=== PATIENT | male | born 1965 | race African-American/Black ===

== ENCOUNTER 2019-04-25 12:02 | Inpatient (IN) | payer BC ==
[2019-04-25 13:05] VITALS: BMI 26.6
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
[2019-04-25] MEDS ORDERED: METHOCARBAMOL 500 MG TABLET PO PRN (15:45)
[2019-04-25] MEDS ORDERED: ACETAMINOPHEN 325 MG TABLET (FP) PO PRN ×2 (15:45)
[2019-04-25] MEDS ORDERED: MAGNESIUM CITRATE 300 ML BOTTLE PO PRN (15:45)
[2019-04-25] MEDS ORDERED: hydrOXYzine PAMOATE 25 MG CAPSULE (FP) PO PRN (15:45)
[2019-04-25] MEDS ORDERED: MENTHOL/PHENOL 1 EACH UD MM PRN (15:45)
[2019-04-25] MEDS ORDERED: BISMUTH SUBSALICYLATE 524 MG/30 ML UD PO PRN (15:45)
[2019-04-25] MEDS ORDERED: MAGNESIUM HYDROX 2400MG/30ML ORAL SUSPENSION 30 ML CUP PO PRN (15:45)
[2019-04-25] MEDS ORDERED: MAG HYDROX/AL HYDROX/SIMETH 30 ML UNIT-DOSE CUP PO PRN (15:45)
[2019-04-25] MEDS ORDERED: chlordiazePOXIDE HCL 25 MG CAPSULE PO PRN (15:45)
[2019-04-25] MEDS ORDERED: IBUPROFEN 400 MG TABLET (FP) PO PRN (15:45)
[2019-04-25] MEDS ORDERED: ALBUTEROL SO4 HFA INHALER IH PRN (15:49)
[2019-04-25] MEDS: chlordiazePOXIDE HCL 25 MG CAPSULE PO SCH ×2 (16:46→22:08)
[2019-04-25] MEDS ORDERED: QUEtiapine FUMARATE 50 MG TABLET PO SCH (22:00)
[2019-04-25] MEDS ORDERED: MIRTAZAPINE 15 MG TABLET (FP) PO SCH (22:00)
[2019-04-25] MEDS: THIAMINE HCL 100 MG TABLET (FP) PO SCH (22:08)
[2019-04-25] MEDS: MELATONIN 5 MG TABLETS PO PRN (22:09)
[2019-04-26] MEDS: chlordiazePOXIDE HCL 25 MG CAPSULE PO SCH ×4 (06:08→22:10)
[2019-04-26] MEDS: PRENATAL VITAMINS W/ FOLIC ACID TABLET (FP) PO SCH (10:21)
[2019-04-26] MEDS: NICOTINE 21 MG/24 HOURS TOPICAL PATCH TD SCH (10:22)
[2019-04-26 10:31] LABS: HEMATOCRIT 39.5 % (35.4-49); HEMOGLOBIN 13.2 GM/dL (11.7-16.9); MCH 29.6 pg (25.7-33.7); MCHC 33.4 g/dl (32.0-35.9); MEAN CELL VOLUME 88.6 fl (80-96); MEAN PLT VOLUME 9.6 fl (7.5-11.1); PLATELET COUNT 204 K/MM3 (134-434); RBC 4.45 M/mm3 (4.00-5.60); RDW 13.9 % (11.9-15.9); WHITE BLOOD COUNT 4.1 K/mm3 (4.0-10.0)
[2019-04-26 10:32] LABS: ALBUMIN 3.3 g/dl (3.4-5.0); BILIRUBIN,TOTAL 0.1 mg/dL (0.2-1); BLOOD UREA NITROGEN 17.1 mg/dL (7-18); CALCIUM 8.4 mg/dL (8.5-10.1); CREATININE 1.1 mg/dL (0.55-1.3); TOT PROT 6.5 g/dl (6.4-8.2)
--- NOTE | 2019-04-26 11:06 | PN ---
S CIWA - CIWA Score Nausea/Vomitin-Mild Nausea/No Vomiting Muscle Tremors: 4-Moderate,w/Arms Extend Anxiety: 3 Agitation: 0-Normal Activity Paroxysmal Sweats: 2 Orientation: 0-Oriented Tacttile Disturbances: 0-None Auditory Disturbances: 0-None Visual Disturbances: 2-Mild Sensitivity Headache: 0-None Present CIWA-Ar Total Score: 12 BHS Progress Note (SOAP) Subjective: 53 years old male admitted on 04/25/19 for alcohol withdrawal sx management treating with librum detox regiment feeling ok today ate breakfast in room feeling tired prefers to stay in bed today Objective: 04/26/19 11:05 Vital Signs Temperature 97.4 F L 04/26/19 08:32 Pulse Rate 65 04/26/19 08:32 Respiratory Rate 18 04/26/19 08:32 Blood Pressure 102/68 04/26/19 08:32 O2 Sat by Pulse Oximetry (%) Laboratory Last Values WBC 4.1 K/mm3 (4.0-10.0) 04/26/19 07:45 RBC 4.45 M/mm3 (4.00-5.60) 04/26/19 07:45 Hgb 13.2 GM/dL (11.7-16.9) 04/26/19 07:45 Hct 39.5 % (35.4-49) 04/26/19 07:45 MCV 88.6 fl (80-96) 04/26/19 07:45 MCH 29.6 pg (25.7-33.7) 04/26/19 07:45 MCHC 33.4 g/dl (32.0-35.9) 04/26/19 07:45 RDW 13.9 % (11.9-15.9) 04/26/19 07:45 Plt Count 204 K/MM3 (134-434) 04/26/19 07:45 MPV 9.6 fl (7.5-11.1) 04/26/19 07:45 Sodium 142 mmol/L (136-145) 04/26/19 07:45 Potassium 4.0 mmol/L (3.5-5.1) 04/26/19 07:45 Chloride 110 mmol/L (98-107) H 04/26/19 07:45 Carbon Dioxide 26 mmol/L (21-32) 04/26/19 07:45 Anion Gap 6 MMOL/L (8-16) L 04/26/19 07:45 BUN 17.1 mg/dL (7-18) 04/26/19 07:45 Creatinine 1.1 mg/dL (0.55-1.3) 04/26/19 07:45 Est GFR (CKD-EPI)AfAm 87.13 04/26/19 07:45 Est GFR (CKD-EPI)NonAf 75.17 04/26/19 07:45 Random Glucose 106 mg/dL (74-106) 04/26/19 07:45 Calcium 8.4 mg/dL (8.5-10.1) L 04/26/19 07:45 Total Bilirubin 0.1 mg/dL (0.2-1) L 04/26/19 07:45 AST 12 U/L (15-37) L 04/26/19 07:45 ALT 16 U/L (13-61) 04/26/19 07:45 Alkaline Phosphatase 97 U/L (45-117) 04/26/19 07:45 Total Protein 6.5 g/dl (6.4-8.2) 04/26/19 07:45 Albumin 3.3 g/dl (3.4-5.0) L 04/26/19 07:45 lab noted Assessment: 04/26/19 11:05 alcohol withdrawal Plan: librium regiment
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
[2019-04-26] MEDS: THIAMINE HCL 100 MG TABLET (FP) PO SCH (22:10)
[2019-04-26] MEDS: MIRTAZAPINE 15 MG TABLET (FP) PO SCH (22:10)
[2019-04-26] MEDS: QUEtiapine FUMARATE 50 MG TABLET PO SCH (22:10)
[2019-04-26] MEDS: MELATONIN 5 MG TABLETS PO PRN (22:11)
[2019-04-27] MEDS: chlordiazePOXIDE HCL 25 MG CAPSULE PO SCH ×4 (05:19→22:16)
[2019-04-27] MEDS: PRENATAL VITAMINS W/ FOLIC ACID TABLET (FP) PO SCH (10:28)
[2019-04-27] MEDS: NICOTINE 21 MG/24 HOURS TOPICAL PATCH TD SCH (10:29)
--- NOTE | 2019-04-27 10:36 | PN ---
[facility] CIWA - CIWA Score Nausea/Vomitin-No Nausea/No Vomiting Muscle Tremors: 3 Anxiety: 2 Agitation: 1-Slight > Activity Paroxysmal Sweats: 2 Orientation: 0-Oriented Tacttile Disturbances: 0-None Auditory Disturbances: 0-None Visual Disturbances: 1-Very Mild Sensitivity Headache: 0-None Present CIWA-Ar Total Score: 9 S Progress Note (SOAP) Subjective: 53 years old male admitted on 04/25/19 for alcohol withdrawal sx management treating with librium detox regiment patient received melatonin remeron seroquel on HS yesterday appears tired and sleepy but ate breakfast and returned to bed Objective: 04/27/19 10:37 Vital Signs Temperature 96.7 F L 04/27/19 08:46 Pulse Rate 72 04/27/19 08:46 Respiratory Rate 18 04/27/19 08:46 Blood Pressure 126/69 04/27/19 08:46 O2 Sat by Pulse Oximetry (%) Laboratory Last Values WBC 4.1 K/mm3 (4.0-10.0) 04/26/19 07:45 RBC 4.45 M/mm3 (4.00-5.60) 04/26/19 07:45 Hgb 13.2 GM/dL (11.7-16.9) 04/26/19 07:45 Hct 39.5 % (35.4-49) 04/26/19 07:45 MCV 88.6 fl (80-96) 04/26/19 07:45 MCH 29.6 pg (25.7-33.7) 04/26/19 07:45 MCHC 33.4 g/dl (32.0-35.9) 04/26/19 07:45 RDW 13.9 % (11.9-15.9) 04/26/19 07:45 Plt Count 204 K/MM3 (134-434) 04/26/19 07:45 MPV 9.6 fl (7.5-11.1) 04/26/19 07:45 Sodium 142 mmol/L (136-145) 04/26/19 07:45 Potassium 4.0 mmol/L (3.5-5.1) 04/26/19 07:45 Chloride 110 mmol/L (98-107) H 04/26/19 07:45 Carbon Dioxide 26 mmol/L (21-32) 04/26/19 07:45 Anion Gap 6 MMOL/L (8-16) L 04/26/19 07:45 BUN 17.1 mg/dL (7-18) 04/26/19 07:45 Creatinine 1.1 mg/dL (0.55-1.3) 04/26/19 07:45 Est GFR (CKD-EPI)AfAm 87.13 04/26/19 07:45 Est GFR (CKD-EPI)NonAf 75.17 04/26/19 07:45 Random Glucose 106 mg/dL (74-106) 04/26/19 07:45 Calcium 8.4 mg/dL (8.5-10.1) L 04/26/19 07:45 Total Bilirubin 0.1 mg/dL (0.2-1) L 04/26/19 07:45 AST 12 U/L (15-37) L 04/26/19 07:45 ALT 16 U/L (13-61) 04/26/19 07:45 Alkaline Phosphatase 97 U/L (45-117) 04/26/19 07:45 Total Protein 6.5 g/dl (6.4-8.2) 04/26/19 07:45 Albumin 3.3 g/dl (3.4-5.0) L 04/26/19 07:45 RPR Titer Nonreactive (NONREACTIVE) 04/26/19 07:45 lab noted Assessment: 04/27/19 10:38 alcohol withdrawal Plan: librium regiment
[2019-04-27] MEDS: MIRTAZAPINE 15 MG TABLET (FP) PO SCH (22:15)
[2019-04-27] MEDS: THIAMINE HCL 100 MG TABLET (FP) PO SCH (22:16)
[2019-04-27] MEDS: QUEtiapine FUMARATE 50 MG TABLET PO SCH (22:16)
[2019-04-28] MEDS ORDERED: chlordiazePOXIDE HCL 10 MG CAPSULE PO PRN
[2019-04-28] MEDS: chlordiazePOXIDE HCL 10 MG CAPSULE PO SCH ×4 (05:54→22:05)
[2019-04-28] MEDS: NICOTINE 21 MG/24 HOURS TOPICAL PATCH TD SCH (10:27)
[2019-04-28] MEDS: PRENATAL VITAMINS W/ FOLIC ACID TABLET (FP) PO SCH (10:29)
--- NOTE | 2019-04-28 10:52 | PN ---
[facility] CIWA - CIWA Score Nausea/Vomitin-Mild Nausea/No Vomiting Muscle Tremors: None Anxiety: 2 Agitation: 0-Normal Activity Paroxysmal Sweats: 4-Forehead w/Sweat Beads Orientation: 2-Disoriented Date<2 days Tacttile Disturbances: 0-None Auditory Disturbances: 0-None Visual Disturbances: 2-Mild Sensitivity Headache: 0-None Present CIWA-Ar Total Score: 11 BHS Progress Note (SOAP) Subjective: Complains of mild nausea, anxiety and light sensitivity Objective: 04/28/19 10:51 Laboratory Last Values WBC 4.1 K/mm3 (4.0-10.0) 04/26/19 07:45 RBC 4.45 M/mm3 (4.00-5.60) 04/26/19 07:45 Hgb 13.2 GM/dL (11.7-16.9) 04/26/19 07:45 Hct 39.5 % (35.4-49) 04/26/19 07:45 MCV 88.6 fl (80-96) 04/26/19 07:45 MCH 29.6 pg (25.7-33.7) 04/26/19 07:45 MCHC 33.4 g/dl (32.0-35.9) 04/26/19 07:45 RDW 13.9 % (11.9-15.9) 04/26/19 07:45 Plt Count 204 K/MM3 (134-434) 04/26/19 07:45 MPV 9.6 fl (7.5-11.1) 04/26/19 07:45 Sodium 142 mmol/L (136-145) 04/26/19 07:45 Potassium 4.0 mmol/L (3.5-5.1) 04/26/19 07:45 Chloride 110 mmol/L (98-107) H 04/26/19 07:45 Carbon Dioxide 26 mmol/L (21-32) 04/26/19 07:45 Anion Gap 6 MMOL/L (8-16) L 04/26/19 07:45 BUN 17.1 mg/dL (7-18) 04/26/19 07:45 Creatinine 1.1 mg/dL (0.55-1.3) 04/26/19 07:45 Est GFR (CKD-EPI)AfAm 87.13 04/26/19 07:45 Est GFR (CKD-EPI)NonAf 75.17 04/26/19 07:45 Random Glucose 106 mg/dL (74-106) 04/26/19 07:45 Calcium 8.4 mg/dL (8.5-10.1) L 04/26/19 07:45 Total Bilirubin 0.1 mg/dL (0.2-1) L 04/26/19 07:45 AST 12 U/L (15-37) L 04/26/19 07:45 ALT 16 U/L (13-61) 04/26/19 07:45 Alkaline Phosphatase 97 U/L (45-117) 04/26/19 07:45 Total Protein 6.5 g/dl (6.4-8.2) 04/26/19 07:45 Albumin 3.3 g/dl (3.4-5.0) L 04/26/19 07:45 RPR Titer Nonreactive (NONREACTIVE) 04/26/19 07:45 Vital Signs Temperature 97.0 F L 04/28/19 08:32 Pulse Rate 104 H 04/28/19 08:32 Respiratory Rate 20 04/28/19 08:32 Blood Pressure 141/97 04/28/19 08:32 O2 Sat by Pulse Oximetry (%) PE Gnl: WDWN, in no distress, in bed Mental status: easily aroused, nl mentation Motor: grossly symmetric limb movement Assessment: 04/28/19 10:52 1. Alcohol use disorder Plan: 1. Librium withdrawal protocol
[2019-04-28] MEDS: QUEtiapine FUMARATE 50 MG TABLET PO SCH (22:05)
[2019-04-28] MEDS: MIRTAZAPINE 15 MG TABLET (FP) PO SCH (22:05)
[2019-04-28] MEDS: THIAMINE HCL 100 MG TABLET (FP) PO SCH (22:05)
[2019-04-29] MEDS ORDERED: chlordiazePOXIDE HCL 10 MG CAPSULE PO SCH (05:00)
--- NOTE | 2019-04-29 10:51 | PN ---
S CIWA - CIWA Score Nausea/Vomitin-No Nausea/No Vomiting Muscle Tremors: None Anxiety: 2 Agitation: 0-Normal Activity Paroxysmal Sweats: 2 Orientation: 0-Oriented Tacttile Disturbances: 0-None Auditory Disturbances: 0-None Visual Disturbances: 0-None Headache: 1-Very Mild CIWA-Ar Total Score: 5 BHS Progress Note (SOAP) Subjective: c/o mild withdrawal symptoms. Objective: 04/29/19 10:50 Vital Signs 04/29/19 04/29/19 04/29/19 03:30 05:47 08:50 Temperature 97.0 F L 97.0 F L Pulse Rate 108 H 99 H Respiratory 18 18 20 Rate Blood Pressure 137/90 133/98 Laboratory Last Values WBC 4.1 K/mm3 (4.0-10.0) 04/26/19 07:45 RBC 4.45 M/mm3 (4.00-5.60) 04/26/19 07:45 Hgb 13.2 GM/dL (11.7-16.9) 04/26/19 07:45 Hct 39.5 % (35.4-49) 04/26/19 07:45 MCV 88.6 fl (80-96) 04/26/19 07:45 MCH 29.6 pg (25.7-33.7) 04/26/19 07:45 MCHC 33.4 g/dl (32.0-35.9) 04/26/19 07:45 RDW 13.9 % (11.9-15.9) 04/26/19 07:45 Plt Count 204 K/MM3 (134-434) 04/26/19 07:45 MPV 9.6 fl (7.5-11.1) 04/26/19 07:45 Sodium 142 mmol/L (136-145) 04/26/19 07:45 Potassium 4.0 mmol/L (3.5-5.1) 04/26/19 07:45 Chloride 110 mmol/L (98-107) H 04/26/19 07:45 Carbon Dioxide 26 mmol/L (21-32) 04/26/19 07:45 Anion Gap 6 MMOL/L (8-16) L 04/26/19 07:45 BUN 17.1 mg/dL (7-18) 04/26/19 07:45 Creatinine 1.1 mg/dL (0.55-1.3) 04/26/19 07:45 Est GFR (CKD-EPI)AfAm 87.13 04/26/19 07:45 Est GFR (CKD-EPI)NonAf 75.17 04/26/19 07:45 Random Glucose 106 mg/dL (74-106) 04/26/19 07:45 Calcium 8.4 mg/dL (8.5-10.1) L 04/26/19 07:45 Total Bilirubin 0.1 mg/dL (0.2-1) L 04/26/19 07:45 AST 12 U/L (15-37) L 04/26/19 07:45 ALT 16 U/L (13-61) 04/26/19 07:45 Alkaline Phosphatase 97 U/L (45-117) 04/26/19 07:45 Total Protein 6.5 g/dl (6.4-8.2) 04/26/19 07:45 Albumin 3.3 g/dl (3.4-5.0) L 04/26/19 07:45 RPR Titer Nonreactive (NONREACTIVE) 04/26/19 07:45 Labs noted. Assessment: 04/29/19 10:50 AOX3, in no acute respiratory distress. Full ROM, ambulating in the unit. Mild Withdrawal symptoms. For d/c tomorrow. Plan: continue detox. D/c in AM.
[2019-04-29] MEDS: NICOTINE 21 MG/24 HOURS TOPICAL PATCH TD SCH (11:00)
[2019-04-29] MEDS: PRENATAL VITAMINS W/ FOLIC ACID TABLET (FP) PO SCH (11:00)
[2019-04-29 15:12] VITALS: BP 144/94; PULSE 90; TEMP 97
--- NOTE | 2019-04-29 15:50 | DS ---
[facility] Detox Discharge Summary Admission Date: 04/25/19 Discharge Date: 04/29/19 (Left AMA) - History Present History: Alcohol Dependence Additional Comments: I was informed by the field staff that pt was verbally abusive to the staff and patients on the unit, using abusive/threatening words to staff which condition 10 was called. Pt was seen on the unit agitated and aggressive asking to leave. Pt states, "I want to leave now". Pt refused to talk to the provider at this time. Pt left AMA. Pt did not complete the detox protocol. Unable to give any discharge instructions due to pt's uncooperativeness. Pt is alert and oriented x3 and in no acute respiratory distress. Pertinent Past History: h/o asthma and alcohol use disorder. - Physical Exam Results Vital Signs: Vital Signs Temperature 97 F L 04/29/19 15:11 Pulse Rate 90 04/29/19 15:11 Respiratory Rate 18 04/29/19 15:11 Blood Pressure 144/94 04/29/19 15:11 O2 Sat by Pulse Oximetry (%) Vital Signs 04/29/19 04/29/19 08:50 15:11 Temperature 97.0 F L 97 F L Pulse Rate 99 H 90 Respiratory 20 18 Rate Blood Pressure 133/98 144/94 Laboratory Last Values WBC 4.1 K/mm3 (4.0-10.0) 04/26/19 07:45 RBC 4.45 M/mm3 (4.00-5.60) 04/26/19 07:45 Hgb 13.2 GM/dL (11.7-16.9) 04/26/19 07:45 Hct 39.5 % (35.4-49) 04/26/19 07:45 MCV 88.6 fl (80-96) 04/26/19 07:45 MCH 29.6 pg (25.7-33.7) 04/26/19 07:45 MCHC 33.4 g/dl (32.0-35.9) 04/26/19 07:45 RDW 13.9 % (11.9-15.9) 04/26/19 07:45 Plt Count 204 K/MM3 (134-434) 04/26/19 07:45 MPV 9.6 fl (7.5-11.1) 04/26/19 07:45 Sodium 142 mmol/L (136-145) 04/26/19 07:45 Potassium 4.0 mmol/L (3.5-5.1) 04/26/19 07:45 Chloride 110 mmol/L (98-107) H 04/26/19 07:45 Carbon Dioxide 26 mmol/L (21-32) 04/26/19 07:45 Anion Gap 6 MMOL/L (8-16) L 04/26/19 07:45 BUN 17.1 mg/dL (7-18) 04/26/19 07:45 Creatinine 1.1 mg/dL (0.55-1.3) 04/26/19 07:45 Est GFR (CKD-EPI)AfAm 87.13 04/26/19 07:45 Est GFR (CKD-EPI)NonAf 75.17 04/26/19 07:45 Random Glucose 106 mg/dL (74-106) 04/26/19 07:45 Calcium 8.4 mg/dL (8.5-10.1) L 04/26/19 07:45 Total Bilirubin 0.1 mg/dL (0.2-1) L 04/26/19 07:45 AST 12 U/L (15-37) L 04/26/19 07:45 ALT 16 U/L (13-61) 04/26/19 07:45 Alkaline Phosphatase 97 U/L (45-117) 04/26/19 07:45 Total Protein 6.5 g/dl (6.4-8.2) 04/26/19 07:45 Albumin 3.3 g/dl (3.4-5.0) L 04/26/19 07:45 RPR Titer Nonreactive (NONREACTIVE) 04/26/19 07:45 Labs noted. Pertinent Admission Physical Exam Findings: withdrawal symptoms. - Treatment Hospital Course: Detox Protocol Followed - Medication Discharge Medications: Ambulatory Orders Mirtazapine [Remeron] 30 mg PO HS 03/23/11 Albuterol Sulfate Inhaler - [Ventolin Hfa Inhaler -] 2 inh PO Q4H 12/12/18 Quetiapine Fumarate [Seroquel -] 50 mg PO HS 04/25/19 - Diagnosis (1) Alcohol use disorder Current Visit: Yes Status: Acute (2) Cocaine use disorder Current Visit: Yes Status: Chronic (3) Nicotine dependence Current Visit: Yes Status: Chronic - AMA Did Patient Leave Against Medical Advice: Yes
[2019-04-30] MEDS ORDERED: chlordiazePOXIDE HCL 10 MG CAPSULE PO ONE (05:00)
== END 2019-04-29 15:40 | disposition left against medical advice (07) | DRG 770 ==
LOC: YASAS 12:02 → UNDOADMIN 13:56 → Y3N 13:56
PROVIDERS: ADMIT Allergy & Immunology; ATTEND Allergy & Immunology
PROC: HZ2ZZZZ Detoxification Services for Substance Abuse Treatment (ICD-10-PCS; principal; 2019-04-25)
DX: F10.230 Alcohol dependence with withdrawal, uncomplicated (principal); F14.20 Cocaine dependence, uncomplicated; F17.210 Nicotine dependence, cigarettes, uncomplicated; F19.24 Other psychoactive substance dependence with psychoactive substance-induced mood disorder; F41.9 Anxiety disorder, unspecified; F31.9 Bipolar disorder, unspecified; F43.10 Post-traumatic stress disorder, unspecified; F60.2 Antisocial personality disorder; M19.90 Unspecified osteoarthritis, unspecified site; Z91.013 Allergy to seafood; Z91.011 Allergy to milk products; Z59.0 Homelessness
CPT/HCPCS: 36415; 80053; 85027; 86593

== ENCOUNTER 2021-12-20 14:16 | Inpatient (IN) | payer BC ==
[2021-12-20 15:25] VITALS: BMI 25.1
[2021-12-20] MEDS ORDERED: MAGNESIUM HYDROX 2400MG/30ML ORAL SUSPENSION 30 ML CUP PO PRN (17:28)
[2021-12-20] MEDS ORDERED: IBUPROFEN 600 MG TABLET (FP) PO PRN (17:28)
[2021-12-20] MEDS ORDERED: MAG HYDROX/AL HYDROX/SIMETH 30 ML UNIT-DOSE CUP PO PRN (17:28)
[2021-12-20] MEDS ORDERED: BENZOCAINE/MENTHOL (CHLORASEPTIC ) LOZENGE MM PRN (17:28)
[2021-12-20] MEDS ORDERED: IBUPROFEN 400 MG TABLET (FP) PO PRN (17:28)
[2021-12-20] MEDS ORDERED: NICOTINE POLACRILEX 2 MG GUM BUC PRN (17:28)
[2021-12-20] MEDS ORDERED: LOPERAMIDE HCL 2 MG CAPSULE PO PRN (17:28)
[2021-12-20] MEDS ORDERED: ACETAMINOPHEN 325 MG TABLET (FP) PO PRN ×2 (17:28)
[2021-12-20] MEDS ORDERED: ONDANSETRON *ODT* 4 MG TABLET SL PRN (17:28)
[2021-12-20] MEDS ORDERED: NALOXONE HCL (KLOXXADO) 8 MG SPRAY NS PRN (17:28)
[2021-12-20] MEDS ORDERED: MAGNESIUM CITRATE 300 ML BOTTLE PO PRN (17:28)
[2021-12-20] MEDS ORDERED: BISMUTH SUBSALICYLATE 524 MG/30 ML PO PRN (17:28)
[2021-12-20] MEDS ORDERED: DICYCLOMINE HCL 10 MG CAPSULE PO PRN (17:28)
[2021-12-20] MEDS ORDERED: chlordiazePOXIDE HCL 25 MG CAPSULE PO PRN (18:52)
[2021-12-20] MEDS: chlordiazePOXIDE HCL 25 MG CAPSULE PO SCH (22:35)
[2021-12-20] MEDS: THIAMINE HCL 100 MG TABLET (FP) PO SCH (22:35)
[2021-12-20] MEDS: MELATONIN 5 MG TABLETS PO SCH (22:36)
[2021-12-21] MEDS: chlordiazePOXIDE HCL 25 MG CAPSULE PO SCH ×4 (05:12→22:42)
[2021-12-21] MEDS ORDERED: ALBUTEROL SO4 HFA INHALER IH PRN (08:29)
[2021-12-21] MEDS: PRENATAL VITAMINS W/ FOLIC ACID TABLET (FP) PO SCH (10:26)
[2021-12-21] MEDS: METHOCARBAMOL 500 MG TABLET PO PRN (10:26)
[2021-12-21] MEDS: NICOTINE 14 MG/24 HOURS TOPICAL PATCH TD SCH (10:26)
[2021-12-21 11:22] LABS: HEMATOCRIT 41.9 % (35.4-49); HEMOGLOBIN 13.7 GM/dL (11.7-16.9); MCH 29.5 pg (25.7-33.7); MCHC 32.8 g/dl (32.0-35.9); MEAN PLT VOLUME 9.3 fl (7.5-11.1); PLATELET COUNT 228 10^3/uL (134-434); RBC 4.66 M/mm3 (4.00-5.60); RDW 13.2 % (11.9-15.9)
[2021-12-21 11:43] LABS: CALCIUM 8.6 mg/dL (8.5-10.1)
[2021-12-21 11:45] LABS: ALBUMIN 3.2 g/dl (3.4-5.0); BLOOD UREA NITROGEN 18.4 mg/dL (7-18)
[2021-12-21 11:47] LABS: CREATININE 1.1 mg/dL (0.55-1.3)
[2021-12-21 11:48] LABS: TOT PROT 6.3 g/dl (6.4-8.2)
[2021-12-21 11:49] LABS: BILIRUBIN,TOTAL 0.3 mg/dL (0.2-1)
[2021-12-21] MEDS: QUEtiapine FUMARATE 50 MG TABLET PO SCH (22:41)
[2021-12-21] MEDS: THIAMINE HCL 100 MG TABLET (FP) PO SCH (22:41)
[2021-12-21] MEDS: MELATONIN 5 MG TABLETS PO SCH (22:42)
[2021-12-22] MEDS: chlordiazePOXIDE HCL 25 MG CAPSULE PO SCH ×4 (05:20→22:30)
[2021-12-22] MEDS: METHOCARBAMOL 500 MG TABLET PO PRN (10:10)
[2021-12-22] MEDS: PRENATAL VITAMINS W/ FOLIC ACID TABLET (FP) PO SCH (10:11)
[2021-12-22] MEDS: NICOTINE 14 MG/24 HOURS TOPICAL PATCH TD SCH (10:11)
[2021-12-22 21:01] VITALS: RESP 18; TEMP 96.9
[2021-12-22] MEDS: THIAMINE HCL 100 MG TABLET (FP) PO SCH (22:25)
[2021-12-22] MEDS: QUEtiapine FUMARATE 50 MG TABLET PO SCH (22:25)
[2021-12-22] MEDS: MELATONIN 5 MG TABLETS PO SCH (22:27)
[2021-12-23] MEDS ORDERED: chlordiazePOXIDE HCL 10 MG CAPSULE PO PRN
[2021-12-23] MEDS ORDERED: chlordiazePOXIDE HCL 10 MG CAPSULE PO SCH (05:00)
[2021-12-23 06:23] VITALS: PULSE 92
[2021-12-23 07:41] VITALS: BP 146/95
[2021-12-24] MEDS ORDERED: chlordiazePOXIDE HCL 10 MG CAPSULE PO SCH (05:00)
[2021-12-25] MEDS ORDERED: chlordiazePOXIDE HCL 10 MG CAPSULE PO ONE (05:00)
== END 2021-12-23 05:20 | disposition left against medical advice (07) | DRG 770 ==
LOC: YASAS 14:16 → Y6N 18:42
PROVIDERS: ADMIT Allergy & Immunology; ATTEND Surgery
PROC: HZ2ZZZZ Detoxification Services for Substance Abuse Treatment (ICD-10-PCS; principal; 2021-12-20)
DX: F10.230 Alcohol dependence with withdrawal, uncomplicated (principal); F14.20 Cocaine dependence, uncomplicated; F12.20 Cannabis dependence, uncomplicated; F31.9 Bipolar disorder, unspecified; F17.210 Nicotine dependence, cigarettes, uncomplicated; F19.282 Other psychoactive substance dependence with psychoactive substance-induced sleep disorder; F19.24 Other psychoactive substance dependence with psychoactive substance-induced mood disorder; F60.2 Antisocial personality disorder; F41.9 Anxiety disorder, unspecified; F43.10 Post-traumatic stress disorder, unspecified; J45.909 Unspecified asthma, uncomplicated; Z91.011 Allergy to milk products; Z91.013 Allergy to seafood; Z56.0 Unemployment, unspecified; Z59.00 Homelessness unspecified
CPT/HCPCS: 36415; 80053; 85027; 86780; 87811; 93005; 93010; C9803-CS; U0003; U0005